=== PATIENT | male | born 1980 | race Caucasian/White ===

== ENCOUNTER 2016-07-23 04:37 | Emergency (ER) | payer SELFPAY ==
[2016-07-23 04:43] VITALS: BP 156/88
[2016-07-23] MEDS ORDERED: HYDR-971 PO (04:58)
[2016-07-23] MEDS ORDERED: PRED20TA PO (04:58)
[2016-07-23] MEDS: methylPREDNISolone ACETATE 80 MG/ML VIAL. IM ONE (04:58)
[2016-07-23] MEDS ORDERED: NAPR500T8 PO (04:58)
--- NOTE | 2016-07-23 04:58 | PHYS DOC ---
Past History Past Medical History: No Pertinent History Past Surgical History: No Surgical History Alcohol Use: None Drug Use: None Adult General Chief Complaint Chief Complaint: UPPER EXTREMITY PAIN HPI HPI 36-year-old male with chronic right elbow pain that he states flares up every year for the last several years since his accident. He states his right elbow is swollen and painful to move. He denies any trauma to the area. [] Review of Systems Review of Systems Constitutional: Denies fever or chills [] Eyes: Denies change in visual acuity, redness, or eye pain [] HENT: Denies nasal congestion or sore throat [] Respiratory: Denies cough or shortness of breath [] Cardiovascular: No additional information not addressed in HPI [] GI: Denies abdominal pain, nausea, vomiting, bloody stools or diarrhea [] : Denies dysuria or hematuria [] Musculoskeletal: Right elbow pain [] Integument: Denies rash or skin lesions [] Neurologic: Denies headache, focal weakness or sensory changes [] Endocrine: Denies polyuria or polydipsia [] Allergies Allergies Allergies Coded Allergies Type Severity Reaction Last Updated Verified No Known Allergies Allergy Unknown 07/23/16 Yes Physical Exam Physical Exam Constitutional: Well developed, well nourished, mild distress, non-toxic appearance. [] HENT: Normocephalic, atraumatic, bilateral external ears normal, oropharynx moist, no oral exudates, nose normal. [] Eyes: PERRLA, EOMI, conjunctiva normal, no discharge. [] Neck: Normal range of motion, no tenderness, supple, no stridor. [] Cardiovascular:Heart rate regular rhythm, no murmur [] Lungs & Thorax: Bilateral breath sounds clear to auscultation [] Abdomen: Bowel sounds normal, soft, no tenderness, no masses, no pulsatile masses. [] Skin: Warm, dry, no erythema, no rash. [] Back: No tenderness, no CVA tenderness. [] Extremities: Right elbow is mildly tender, swollen with decreased range of motion secondary to pain no obvious deformity. [] Neurologic: Alert and oriented X 3, normal motor function, normal sensory function, no focal deficits noted. [] Psychologic: Affect normal, judgement normal, mood normal. [] Current Patient Data Vital Signs Vital Signs Date Time Temp Pulse Resp B/P Pulse Ox O2 Delivery O2 Flow Rate FiO2 3/23/17 04:43 98.0 64 20 96 Room Air EKG EKG [] Radiology/Procedures Radiology/Procedures [] Course & Med Decision Making Course & Med Decision Making Pertinent Labs and Imaging studies reviewed. (See chart for details) [ED course: Evaluation reveals a 36-year-old male with right elbow pain. He's tender to palp over the right medial epicondyle he clinically has epicondylitis. He was given a shot of steroids during stay in the emergency department. We'll provide him with some steroids to take at home as well as some pain medication.] Dragon Disclaimer Dragon Disclaimer This chart was dictated in whole or in part using Voice Recognition software in a busy, high-work load, and often noisy Emergency Department environment. It may contain unintended and wholly unrecognized errors or omissions. Departure Departure: Impression: Primary Impression: Medial epicondylitis Disposition: HOME, SELF-CARE Condition: STABLE Patient Instructions: Epicondylitis, Medial (Golfer's Elbow) with Rehab- [facility] Additional Instructions: Thank you for allowing us to participate in your care today. Followup with your primary care physician in 3 days if your symptoms do not improve. Return to the emergency department you have any new or concerning findings. This should be evaluated by the primary care physician and any necessary consulting services for continued management within a few days after discharge. Return to emergency room if you have any new or concerning symptoms including but not limited to fever, chills, nausea, vomiting, intractable pain, any new rashes, chest pain, shortness of air, uncontrolled bleeding, difficulty breathing, and/or vision loss. You may have been prescribed medication that can change in your level of thinking and ability to operate machinery. These medications include hydrocodone and Ativan. Also, Benadryl has been known to do this as well. Be sure to check with your pharmacist and ask if the medications you've prescribed can affect your level of consciousness. I recommend not operating heavy machinery or driving while on medication such as these. Scripts Hydrocodone Bit/Acetaminophen ([place] 5-325 Tablet)1 Each Tablet1-2 Tab PO Q4- 6HRS PAIN #20 TAB Prov:BASIL HIGHTOWER DO 07/23/16 Naproxen 500 Mg Tablet.dr1 Tab PO Q12HR PRN PAIN #60 TAB Ref 1 Prov:BASIL HIGHTOWER DO 07/23/16 Prednisone 20 Mg Tablet1 Tab PO BID epicondylitis #20 TAB Prov:BASIL HIGHTOWER DO 07/23/16 Problem Qualifiers Primary Impression: Medial epicondylitis Laterality: right Qualified Code: M77.01 - Medial epicondylitis, right elbow BASIL HIGHTOWER DO Jul 23, 2016 04:58
== END 2016-07-23 05:05 | disposition home or self-care (01) ==
LOC: ER 04:37
DX: M77.01 Medial epicondylitis, right elbow (principal)
CPT/HCPCS: 96372; 99283; J1040

== ENCOUNTER → 2018-01-04 | Outpatient (CLI) | payer BC ==
[~2018-01-04] MED LIST: HYDR-971 PO; NAPR500T8 PO; PRED20TA PO
--- NOTE | 2018-01-04 09:29 | RAD ---
Nonvascular right extremity ultrasound History: Lump of the proximal right forearm Comparison: None. Findings: Multiple sonographic images directed toward the site of palpable concern are submitted. Indicated as in the region of posterior right forearm and elbow, there is superficial, oblong, hypoechoic collection with internal echoes up to 3.3 x 2.9 x 0.3 cm in size. This is not associated with internal vascularity, some minimal foci vascularity at the periphery, not circumferential. Impression: 1. There is a nonspecific complex fluid collection at site of palpable concern right posterior forearm and elbow region of uncertain sterility. Electronically signed by: Deepak Neves MD (01/04/2018 9:25 AM) [id number]
== END | disposition home or self-care (01) ==
LOC: US 08:28
PROVIDERS: ATTEND Physician Assistant Medical
DX: R22.31 Localized swelling, mass and lump, right upper limb (principal)
CPT/HCPCS: 76881

== ENCOUNTER 2020-03-10 17:41 | Emergency (ER) | payer BC ==
[~2020-03-10] VITALS: Ht 193 cm; Wt 137.2 kg
[~2020-03-10 17:41] MED LIST changes: +HYDR-3165 PO; -HYDR-971 PO
--- NOTE | 2020-03-10 18:05 | PHYS DOC ---
Past History Past Medical History: No Pertinent History Past Surgical History: No Surgical History Alcohol Use: None Drug Use: None Adult General Chief Complaint Chief Complaint: ABDOMINAL PAIN [facility] HPI Patient is a 39 year old male who presents with complaints of a sudden onset of right flank pain that started at approximately 0 330 this morning which woke him up out of bed. Patient states that he hurts so bad he broke out in a cold sweat. Patient states that his pain was between a 8/10 to a 10/10 on a 1-10 pain scale. Patient states that he did not take anything for the pain at home, however upon arrival to the emergency department he feels that his pain has dropped down to a 1-4/10 pain on a 1-10 pain scale. Patient reports eating lots of chickpeas for the past 2 days and thinks he might have an appendicitis. Patient denies any surgical history, patient states he does not take prescription medications at home, patient states that he has no allergies to medications. Patient denies any recent fever or chills, any visual changes, nasal congestion cough or shortness of breath. Patient denies chest pain or edema. Patient denies nausea vomiting diarrhea constipation or blood in his stools. Patient denies problems urinating, penile discharge, or STI concerns. Patient denies pain in his joints, back pain, skin rashes, headaches, focal weaknesses, or sensory changes. Patient denies any increased urination or increased thirst. Patient denies swelling of his glands, recent depressions, anxieties, homicidal or suicidal ideation. Patient denies any symptoms of the COVID-19 virus, patient states he does not wish to be tested today for the COVID-19 virus. Review of Systems Review of Systems Constitutional: Denies fever or chills Eyes: Denies change in visual acuity, redness, or eye pain HENT: Denies nasal congestion or sore throat Respiratory: Denies cough or shortness of breath Cardiovascular: No additional information not addressed in HPI GI: Denies abdominal pain, nausea, vomiting, bloody stools or diarrhea, complains of right flank pain sudden onset at 330 this morning with a current pain scale of 1-4/10 on a 1-10 pain scale. : Denies dysuria or hematuria Musculoskeletal: Denies back pain or joint pain Integument: Denies rash or skin lesions Neurologic: Denies headache, focal weakness or sensory changes Endocrine: Denies polyuria or polydipsia All other systems were reviewed and found to be within normal limits, except as documented in this note. Family History Family History Patient states that both his mother and father are healthy and do not take medications for health problems. Current Medications Current Medications Patient states he does not take any prescription medications. Allergies Allergies Allergies Coded Allergies Type Severity Reaction Last Updated Verified No Known Allergies Allergy Unknown 07/23/16 Yes Physical Exam Physical Exam Constitutional: Well developed, well nourished, no acute distress, non-toxic appearance. HENT: Normocephalic, atraumatic, bilateral external ears normal, oropharynx moist, no oral exudates, nose normal. Eyes: PERRLA, EOMI, conjunctiva normal, no discharge. Neck: Normal range of motion, no tenderness, supple, no stridor. Cardiovascular:Heart rate regular rhythm, no murmur Lungs & Thorax: Bilateral breath sounds clear to auscultation Abdomen: Bowel sounds normal, soft, no tenderness, no masses, no pulsatile masses. Skin: Warm, dry, no erythema, no rash. Back: No tenderness, patient has right-sided CVA tenderness to light hammer-like stimuli. Extremities: No tenderness, no cyanosis, no clubbing, ROM intact, no edema. Neurologic: Alert and oriented X 3, normal motor function, normal sensory function, no focal deficits noted. Psychologic: Affect normal, judgement normal, mood normal. Current Patient Data Vital Signs Patient's vital signs were 97.8 oral temp, 80 pulse, respirations 14 and unlabored, noninvasive blood pressure of the right upper extremity was 138/71. Lab Results Laboratory Tests Test 03/10/20 18:18 White Blood Count 7.6 x10^3/uL Red Blood Count 5.44 x10^6/uL Hemoglobin 16.8 g/dL Hematocrit 48.5 % Mean Corpuscular Volume 89 fL Mean Corpuscular Hemoglobin 31 pg Mean Corpuscular Hemoglobin Concent 35 g/dL Red Cell Distribution Width 13.6 % Platelet Count 219 x10^3/uL Neutrophils (%) (Auto) 55 % Lymphocytes (%) (Auto) 32 % Monocytes (%) (Auto) 8 % Eosinophils (%) (Auto) 4 % Basophils (%) (Auto) 2 % Neutrophils # (Auto) 4.1 x10^3uL Lymphocytes # (Auto) 2.5 x10^3/uL Monocytes # (Auto) 0.6 x10^3/uL Eosinophils # (Auto) 0.3 x10^3/uL Basophils # (Auto) 0.1 x10^3/uL Urine Collection Type Unknown Urine Color Yellow Urine Clarity Clear Urine pH 5.5 Urine Specific [place] >=1.030 Urine Protein Neg Urine Glucose (UA) Neg mg/dL Urine Ketones (Stick) Neg mg/dL Urine Blood Mod Urine Nitrite Neg Urine Bilirubin Neg Urine Urobilinogen Dipstick 0.2 mg/dL Urine Leukocyte Esterase Neg Urine RBC 6-10 /HPF Urine WBC Occ /HPF Urine Squamous Epithelial Cells None /LPF Urine Bacteria 0 /HPF Sodium Level 140 mmol/L Potassium Level 3.5 mmol/L Chloride Level 103 mmol/L Carbon Dioxide Level 25 mmol/L Anion Gap 12 Blood Urea Nitrogen 14 mg/dL Creatinine 1.1 mg/dL Estimated GFR ([place]croft-Gault) 74.1 BUN/Creatinine Ratio 13 Glucose Level 126 mg/dL Calcium Level 9.8 mg/dL Total Bilirubin 0.8 mg/dL Aspartate Amino Transf (AST/SGOT) 66 U/L Alanine Aminotransferase (ALT/SGPT) 128 U/L Alkaline Phosphatase 87 U/L Total Protein 8.3 g/dL Albumin 4.3 g/dL Albumin/Globulin Ratio 1.1 Amylase Level 41 U/L Current Medications Medications (Trade) Dose Ordered Sig/Alex Route PRN Reason Start Time Stop Time Status Last Admin Dose Admin Sodium Chloride 1,000 ml @ 1,000 mls/hr 1X ONCE IV 03/10/20 18:15 03/10/20 19:14 DC 03/10/20 18:15 Ketorolac Tromethamine (Toradol 30mg Vial) 30 mg 1X ONCE IVP 03/10/20 18:15 03/10/20 18:16 DC 03/10/20 18:15 EKG EKG [] Radiology/Procedures Radiology/Procedures STATUS: REG ER ORD. PHYSICIAN: KATIA STONE DARKROOM TECHNICIAN REASON: HEMATURIA, RT CVA TENDERNESS, R/O KIDNEY STONE PROCEDURE: CT ABDOMEN PELVIS WO CONTRAST Exam: CT of abdomen and pelvis without contrast INDICATION: Hematuria, right CVA tenderness TECHNIQUE: Sequential axial images through the abdomen and pelvis obtained without IV contrast. Sagittal and coronal reformatted images were reconstructed from the axial data and reviewed. Comparisons: None FINDINGS: Heart size is normal. No pericardial effusion. Visualized lung bases are clear. No pleural effusion. Evaluation of solid organs is limited secondary to noncontrast technique. Liver, spleen, pancreas, gallbladder and adrenals are unremarkable. No perinephric inflammation or hydronephrosis. No renal calculi are identified. There is a 2 mm calculus at the right ureter vesicular junction. No other ureteral calculi. Bladder is decompressed not well evaluated. Prostate is not enlarged. Large and small bowel are unremarkable. Appendix is normal. No free abdominal air or fluid. No obstruction. Abdominal aorta has a normal course and caliber. No enlarged abdominal lymph nodes are identified. No suspicious osseous lesions or acute fractures. IMPRESSION: The 2 mm calculus adjacent to the right ureterovesicular junction. No hydronephrosis. This may relate to a recently passed stone. No other renal or ureteral calculi. Exposure: One or more of the following in the visualized dose reduction techniques were utilized for this examination: 1. Automated exposure control 2. Adjustment of the MA and/or KV according to patient size 3. Use of iterative of reconstructive technique Electronically signed by: Angel Luis Olivier MD (03/10/2020 7:55 PM) [id number] DICTATED AND SIGNED BY: ANGEL LUIS OLIVIER MD DATE: 03/10/201954 CC: KATIA STONE APRN; [facility]; PCP,NO ~ Heart Score Risk Factors: Risk Factors: DM, Current or recent (<one month) smoker, HTN, HLP, family history of CAD, obesity. Risk Scores: Risk Factors: DM, Current or recent (<one month) smoker, HTN, HLP, family history of CAD, obesity. Course & Med Decision Making Course & Med Decision Making Pertinent Labs and Imaging studies reviewed. (See chart for details) 39-year-old male patient presents to the emergency department with right flank pain, however he told the nurse he had right lower quadrant pain, during examination he had right CVA tenderness. Because of the complaints that differed between nursing staff and his complaints to me, I elected to wait for a urine result before deciding the specific type of CAT scan to look for kidney stone versus appendicitis. Patient's urine showed blood in his urine so a CAT scan without to look for kidney stone was performed. Per house radiologist CT scan was read with a 2 mm stone at the distal ureter. The patient was given 30 mg of IV Toradol which resolved his pain to a 0 patient reports that his pain turned off like a light switch. Upon reexamination patient states he still does not have any pain. Discussed findings with patient that he has a kidney stone that may need to pass, offered prescriptions for Flomax and NSAID medication for pain patient denied the need for this, patient states he will just take Aleve at home. Discussed with patient need to strain urine and and follow-up with primary care or urology. Patient stated that he feels like he does not need to do this. Patient gave verbal understanding of discharge instructions, follow-up instructions, return to emergency department concerns. Patient had no further questions or concerns. Patient discharged home without incident. Dragon Disclaimer Dragon Disclaimer This electronic medical record was generated, in whole or in part, using a voice recognition dictation system. Departure Departure: Impression: Primary Impression: Kidney stone on right side Disposition: 01 DC HOME SELF CARE/HOMELESS Condition: IMPROVED Referrals: PCP,NO (PCP) Patient Instructions: Diet for Kidney Stones, Kidney Stones Additional Instructions: The pain you experienced was from a kidney stone. We discussed at length about kidney stones, I offered to write you a prescription for pain medicine which she declined, you may use your Aleve at home for further kidney stone pain. I also offered to write you a prescription for Flomax which is been known to relax the ureter so the stone passes easier with less pain, but you have declined this as well. I would prefer that you strain your urine and save your stone and take it to see your doctor just in case the stones become more chronic. The rad iologist read your CAT scan and did not see any more stones in your kidneys however there is 1 at the distal part of your ureter very close to your bladder. Please return to the emergency department for worsening symptoms or further concerns. KATIA STONE APRN Mar 10, 2020 18:05
[2020-03-10] MEDS ORDERED: KETOROLAC 30 MG/ML VIAL. IVP ONE (18:15)
[2020-03-10] MEDS ORDERED: IV NORMAL SALINE 1,000ML 1,000 ML IV ONE (18:15)
[2020-03-10 18:37] LABS: BASO # 0.1 x10^3/uL (0.0-0.2); BASO % 2 % (0-3); EOS # 0.3 x10^3/uL (0.0-0.7); EOS % 4 % (0-3); HEMATOCRIT 48.5 % (39.0-53.0); HEMOGLOBIN 16.8 g/dL (13.0-17.5); LYMPH # 2.5 x10^3/uL (1.0-4.8); LYMPH % 32 % (24-48); MEAN CORPUSCULAR HEMOGLOBIN 31 pg (25-35); MEAN CORPUSCULAR HGB CONC 35 g/dL (31-37); MEAN CORPUSCULAR VOLUME 89 fL (79-100); MONO # 0.6 x10^3/uL (0.0-1.1); MONO % 8 % (0-9); NEUT # 4.1 x10^3uL (1.8-7.7); NEUT % 55 % (31-73); PLATELET COUNT 219 x10^3/uL (140-400); RED BLOOD COUNT 5.44 x10^6/uL (4.30-5.70); RED CELL DISTRIBUTION WIDTH 13.6 % (11.5-14.5); WHITE BLOOD COUNT 7.6 x10^3/uL (4.0-11.0)
[2020-03-10 18:59] LABS: CALCIUM 9.8 mg/dL (8.5-10.1); CREATININE 1.1 mg/dL (0.7-1.3); GFR 74.1; POTASSIUM 3.5 mmol/L (3.5-5.1)
[2020-03-10 19:09] LABS: BILIRUBIN,URINE NEG (NEG); CLARITY,URINE CLEAR; COLOR,URINE YELLOW; GLUCOSE,URINE NEG (NEG); NITRITE,URINE NEG (NEG); UROBILINOGEN,URINE 0.2 mg/dL (0.2 mg/dL)
[2020-03-10 19:10] LABS: BACTERIA,URINE 0 /HPF (0-FEW); WBC,URINE OCC /HPF (0-4)
[2020-03-10 19:12] LABS: ALBUMIN 4.3 g/dL (3.4-5.0); ALBUMIN/GLOBULIN RATIO 1.1 (1.0-1.7); TOTAL BILIRUBIN 0.8 mg/dL (0.2-1.0); TOTAL PROTEIN 8.3 g/dL (6.4-8.2)
[2020-03-10 19:15] VITALS: BP 140/83
--- NOTE | 2020-03-10 19:58 | RAD ---
Exam: CT of abdomen and pelvis without contrast INDICATION: Hematuria, right CVA tenderness TECHNIQUE: Sequential axial images through the abdomen and pelvis obtained without IV contrast. Sagittal and coronal reformatted images were reconstructed from the axial data and reviewed. Comparisons: None FINDINGS: Heart size is normal. No pericardial effusion. Visualized lung bases are clear. No pleural effusion. Evaluation of solid organs is limited secondary to noncontrast technique. Liver, spleen, pancreas, gallbladder and adrenals are unremarkable. No perinephric inflammation or hydronephrosis. No renal calculi are identified. There is a 2 mm calculus at the right ureter vesicular junction. No other ureteral calculi. Bladder is decompressed not well evaluated. Prostate is not enlarged. Large and small bowel are unremarkable. Appendix is normal. No free abdominal air or fluid. No obstruction. Abdominal aorta has a normal course and caliber. No enlarged abdominal lymph nodes are identified. No suspicious osseous lesions or acute fractures. IMPRESSION: The 2 mm calculus adjacent to the right ureterovesicular junction. No hydronephrosis. This may relate to a recently passed stone. No other renal or ureteral calculi. Exposure: One or more of the following in the visualized dose reduction techniques were utilized for this examination: 1. Automated exposure control 2. Adjustment of the MA and/or KV according to patient size 3. Use of iterative of reconstructive technique Electronically signed by: Dickson Rodriguez MD (03/10/2020 7:55 PM) [id number]
== END 2020-03-10 20:34 | disposition home or self-care (01) ==
LOC: ER 17:41
DX: N20.0 Calculus of kidney (principal)
CPT/HCPCS: 36415; 74176; 80053; 81001; 82150; 85025; 96361; 96374; 99284; J1885; J7030